=== PATIENT | female | born 1950 | race Caucasian/White ===

== ENCOUNTER 2022-06-20 16:02 | Emergency (ER) | payer MEDICARE, OTHER ==
[~2022-06-20] VITALS: Ht 167 cm; Wt 82.0 kg
[2022-06-20] MEDS ORDERED: TETANUS,DIPTH,PERTUSS P/F (BOOSTRIX) 0.5 ML VIAL IM ONE (16:30)
--- NOTE | 2022-06-20 17:12 | ED Lower Extremity ---
General Chief Complaint: Laceration Stated Complaint: RT LEG LAC Nursing Triage Note: pt. reports accidental laceration to rt. calf today on a "metal cactus decoration". pt. pulled flap down down on "v" shaped laceration and dressed w/ bandaid. Source: patient History of Present Illness Date Seen by Provider: Jun 20, 2022 Time Seen by Provider: 16:56 Initial Comments 71-year-old female presenting with accidental laceration to her right calf. She states that she was pulling some weeds in the yard and backed into a metal cactus decoration that they have. She has a V-shaped flap to the back of her calf. There was some bleeding initially but that is controlled on arrival to the ED. She had put the flap back in position and then put a dressing over it. She states it has been more than 5 years since her last tetanus booster. Onset: just prior to arrival Severity: mild Pain/Injury Location: right leg (Right Leg Calf) Method of Injury: incised Modifying Factors: Worse With Movement Allergies and Home Medications Allergies Coded Allergies: Tetracyclines (Verified Allergy, Unknown, 06/20/22) minocycline (Verified Allergy, Unknown, 06/20/22) Patient Home Medication List Home Medication List Reviewed: Yes Review of Systems Constitutional: No chills, No fever EENTM: no symptoms reported Respiratory: no symptoms reported Cardiovascular: no symptoms reported Gastrointestinal: no symptoms reported Genitourinary: no symptoms reported Musculoskeletal: see HPI Skin: see HPI Psychiatric/Neurological: Denies Numbness, Denies Paresthesia Past Oxsjvij-[id number]-Ppqgmr Hx Patient Social History Tobacco Use?: No Use of E-Cig and/or Vaping dev: No Substance use?: No Alcohol Use?: No Physical Exam Vital Signs Vital Signs - First Documented 06/20/22 16:10 Temp 36.2 Pulse 100 Resp 20 B/P (MAP) 177/93 (121) Pulse Ox 99 O2 Delivery Room Air Capillary Refill : Height, Weight, BMI Height: '" Weight: lbs. oz. kg; 29.00 BMI Method: General Appearance: WD/WN, no apparent distress Cardiovascular: normal peripheral pulses Legs: right leg other (2.6 cm V-shaped flap laceration to the right calf. Bleeding is controlled. There are some bruising to the skin.) Neurologic/Tendon: normal sensation, normal motor functions, normal tendon functions Neurologic/Psychiatric: alert, oriented x 3 Skin: warm/dry, ecchymosis (Mild bruising around the laceration) Procedures/Interventions Wound Location: Lower Extremities (Right calf) Wound Length (cm): 2.6 Wound's Depth, Shape: flap, sub Q Wound Explored: clean Irrigated w/ Saline (ccs): 250 Anesthesia: 1% Lidocaine Volume Anesthetic (ccs): 8 Suture: Ethlion Suture Size: 4-0 Number of Sutures: 8 Layer Closure?: 1 Sterile Dressing Applied?: Yes Progress After obtaining verbal consent from the patient complaint was cleaned with chlorhexidine scrub soap and sterile water. Using 1% plain lidocaine the wound was infiltrated for anesthetic effect. A total of 8 mL of 1% plain lidocaine were infiltrated. Then the wound was irrigated with 250 mL of sterile water and chlorhexidine scrub soap solution. No foreign bodies were seen. The wound appeared clean. Using 4-0 Ethilon a total of 8 simple interrupted stitches were placed to approximate the wound edges. Wound edges were well approximated. Patient tolerated procedure well without any immediate complication. Counseled on follow-up and return precautions. Advised to have the stitches out in approximately 10 to 14 days. Progress/Results/Core Measures Results/Orders My Orders Orders - DONNELL RODRIGUEZ MD Dipht,Pertmarvin(Acell),Tet Adult (Boostrix (06/20/22 16:30) Lidocaine 1% Inj 50 Ml (Xylocaine 1% Inj (06/20/22 16:30) Suture Set At Bedside (06/20/22 16:29) Medications Given in ED Current Medications Medications Dose Ordered Sig/Eli Route Start Time Stop Time Status Last Admin Dose Admin Diphtheria/ Tetanus/Acell Pertussis 0.5 ml ONCE ONCE IM 06/20/22 16:30 06/20/22 16:32 DC 06/20/22 17:59 0.5 ML Lidocaine HCl 50 ml ONCE ONCE IJ 06/20/22 16:30 06/20/22 16:32 DC 06/20/22 17:20 8 ML Vital Signs/I&O 06/20/22 06/20/22 16:10 18:06 Temp 36.2 36.2 Pulse 100 100 Resp 20 20 B/P (MAP) 177/93 (121) 177/93 Pulse Ox 99 99 O2 Delivery Room Air Room Air Blood Pressure Mean: 121 Progress Progress Note : Progress Note Update tetanus booster and cleaned and closed wound on the back of the calf. Counseled on follow-up and return precautions stitches out in 10 to 14 days. Be seen sooner if having concerns for infection Departure Impression Primary Impression: Laceration of right calf without complication Qualified Codes: S81.811A - Laceration without foreign body, right lower leg, initial encounter Disposition: HOME, SELF-CARE Condition: Stable Departure-Patient Inst. Decision time for Depature: 17:59 Referrals: THANH GROVE MD (PCP) Primary Care Physician Patient Instructions: Laceration Repair With Stitches ED Add. Discharge Instructions: Keep wound clean and dry for the first 24 hours. After that you may wash with soap and water but do not soak the wound. Clean with soap and water and you may apply antibiotic ointment to help prevent infection. Consider applying ice for 15 to 20 minutes every few hours for the first 2 to 3 days to help with bruising and swelling. You may take acetaminophen or ibuprofen if needed for pain. Try to elevate your leg to help with swelling and bruising. Have the sutures removed in 10 to 14 days. You may return here to the emergency department and have them removed. Follow-up to be seen sooner if you are having concerns for infection such as pus draining from the wound, redness streaking up your calf and leg, fever over 101 Fahrenheit All discharge instructions reviewed with patient and/or family. Voiced understanding. DONNELL RODRIGUEZ MD Jun 20, 2022 17:12
[2022-06-20] MEDS: LIDOCAINE 1% INJ 50 ML (XYLOCAINE) VIAL IJ ONE (17:20)
[2022-06-20 18:06] VITALS: BP 177/93
== END 2022-06-20 18:06 | disposition home or self-care (01) ==
LOC: ER FS 16:04
DX: S81.811A Laceration without foreign body, right lower leg, initial encounter (principal); Z23 Encounter for immunization; W26.8XXA Contact with other sharp object(s), not elsewhere classified, initial encounter; Y92.096 Garden or yard of other non-institutional residence as the place of occurrence of the external cause
CPT/HCPCS: 12002; 90715

== ENCOUNTER 2022-07-02 10:25 | Emergency (ER) | payer MEDICARE ==
[2022-07-02 10:37] VITALS: BP 150/71
== END 2022-07-02 10:39 | disposition home or self-care (01) ==
LOC: EDUNIT# 10:25 → ER FS 10:27
DX: Z48.02 Encounter for removal of sutures (principal)